=== PATIENT | female | born 1945 | race Hispanic/Latino ===

== ENCOUNTER 2022-09-17 12:59 | Outpatient (RCR) | payer MEDICARE | END 2022-09-29 | LOC: PT 12:59 | PROVIDERS: ATTEND Specialist | DX: M17.0 Bilateral primary osteoarthritis of knee (principal); M62.81 Muscle weakness (generalized); M25.562 Pain in left knee; M25.561 Pain in right knee; M25.661 Stiffness of right knee, not elsewhere classified ==

== ENCOUNTER 2022-10-08 09:54 | Outpatient (RCR) | payer MEDICARE | END 2022-10-27 | LOC: PT 09:54 | PROVIDERS: ATTEND Specialist | DX: M17.0 Bilateral primary osteoarthritis of knee (principal); M62.81 Muscle weakness (generalized); M25.561 Pain in right knee; M25.562 Pain in left knee; M25.661 Stiffness of right knee, not elsewhere classified ==

== ENCOUNTER → 2022-10-26 | Outpatient (CLI) | payer MEDICARE ==
[~2022-10-26] MED LIST: GADOBENATE DIMEGLUMINE 1 ML IV ONE
[2022-10-26 11:43] LABS: CREATININE, SERUM 0.77 mg/dL (0.57-1.11)
== END ==
LOC: MRI 09:14
PROVIDERS: ATTEND Internal Medicine Cardiovascular Disease
DX: R22.42 Localized swelling, mass and lump, left lower limb (principal)
CPT/HCPCS: 36415; 73720; 82565; 84520; A9577

== ENCOUNTER 2024-07-03 11:20 | Observation (INO) | payer MEDICARE ==
[~2024-07-03] VITALS: Ht 157.5 cm; Wt 95.3 kg
[2024-07-03 11:22] VITALS: TEMP 98.1
[2024-07-03] MEDS ORDERED: SODIUM CHLORIDE FLUSH 10 ML SYR IV PRN (11:30)
[2024-07-03 12:53] LABS: BASOPHILS # (AUTO) 0.1 (0.0-0.1); BASOPHILS % 0.6 % (0.0-1.0); EOSINOPHILS # (AUTO) 0.4 (0.0-0.4); EOSINOPHILS % 3.5 % (0.0-6.0); HEMATOCRIT 38.3 % (34.2-44.1); HEMOGLOBIN 11.8 g/dL (12.0-16.0); LYMPHOCYTES # (AUTO) 1.6 (1.0-3.2); LYMPHOCYTES % 15.5 % (18.0-39.1); MEAN CORPUSCULAR HEMOGLOBIN 27.1 pg (28-32); MEAN CORPUSCULAR HGB CONC 30.8 g/dL (31-35); MEAN CORPUSCULAR VOLUME 87.8 fL (81-99); MONOCYTES # (AUTO) 0.7 (0.2-0.8); MONOCYTES % 6.6 % (4.4-11.3); NEUTROPHILS # (AUTO) 7.7 (2.1-6.9); NEUTROPHILS % 73.2 % (38.7-80.0); PLATELET COUNT 243 x10e3/uL (140-360); RED BLOOD COUNT 4.36 x10e6/uL (3.6-5.1); RED CELL DISTRIBUTION WIDTH 14.6 % (11.7-14.4); WHITE BLOOD COUNT 10.51 x10e3/uL (4.8-10.8)
[2024-07-03] MEDS: ASPIRIN 81 MG CHEW TAB PO ONE ×3 (13:12→15:20)
[2024-07-03 13:17] LABS: ALANINE AMINOTRANSFERASE 13 IU/L (0-55); ALBUMIN 3.8 g/dL (3.5-5.0); ALKALINE PHOSPHATASE 119 IU/L (40-150); ANION GAP 13.3 mmol/L (8-16); BILIRUBIN,TOTAL 0.4 mg/dL (0.2-1.2); BLOOD UREA NITROGEN 19 mg/dL (7-26); BUN/CREATININE RATIO 23 (6-25); CALCIUM 9.9 mg/dL (8.4-10.2); CARBON DIOXIDE 23 mmol/L (22-29); CHLORIDE 105 mmol/L (98-107); CREATININE, SERUM 0.81 mg/dL (0.57-1.11); EST GLOMERULAR FILTRATION RATE 75 ML/MIN (>=60); GLUCOSE 125 mg/dL (74-118); POTASSIUM 4.3 mmol/L (3.5-5.1); SODIUM 137 mmol/L (136-145); TOTAL PROTEIN 7.7 g/dL (6.5-8.1)
[2024-07-03 14:09] LABS: TROPONIN I < 0.05 ng/mL (0.0-0.40)
[2024-07-03] MEDS ORDERED: SODIUM CHLORIDE FLUSH 10 ML SYR INJ PRN (15:00)
[2024-07-03] MEDS ORDERED: ONDANSETRON HCL INJ 2MG/ML 2ML 2 MG/ML VIAL IV PRN (15:00)
[2024-07-03 16:30] VITALS: PULSE 63; RESP 20
[2024-07-03 20:00] VITALS: BP 143/55; PULSE 68; RESP 16; TEMP 97.5; O2SAT 99
[2024-07-04] VITALS (7 sets, daily range): BP systolic 130–149; BP diastolic 57–65; PULSE 70–86; RESP 18–23; TEMP 97.5–98.1; O2SAT 97–100
[2024-07-04 05:36] LABS: BASOPHILS # (AUTO) 0.1 (0.0-0.1); BASOPHILS % 0.6 % (0.0-1.0); EOSINOPHILS # (AUTO) 0.5 (0.0-0.4); EOSINOPHILS % 4.8 % (0.0-6.0); HEMATOCRIT 35.7 % (34.2-44.1); HEMOGLOBIN 10.8 g/dL (12.0-16.0); LYMPHOCYTES # (AUTO) 2.2 (1.0-3.2); LYMPHOCYTES % 22.7 % (18.0-39.1); MEAN CORPUSCULAR HEMOGLOBIN 27.1 pg (28-32); MEAN CORPUSCULAR HGB CONC 30.3 g/dL (31-35); MEAN CORPUSCULAR VOLUME 89.7 fL (81-99); MONOCYTES # (AUTO) 0.7 (0.2-0.8); MONOCYTES % 7.2 % (4.4-11.3); NEUTROPHILS # (AUTO) 6.1 (2.1-6.9); NEUTROPHILS % 64.2 % (38.7-80.0); PLATELET COUNT 212 x10e3/uL (140-360); RED BLOOD COUNT 3.98 x10e6/uL (3.6-5.1); RED CELL DISTRIBUTION WIDTH 14.6 % (11.7-14.4); WHITE BLOOD COUNT 9.55 x10e3/uL (4.8-10.8)
[2024-07-04] MEDS ORDERED: METOPROLOL TART50 MG (05:37)
[2024-07-04] MEDS ORDERED: GLIPIZIDE5 MG (05:37)
[2024-07-04] MEDS ORDERED: METFORMIN HCL500 MG (05:37)
[2024-07-04] MEDS ORDERED: ASPIRIN CHEW81 MG PO (05:45)
[2024-07-04 06:14] LABS: ALBUMIN 3.5 g/dL (3.5-5.0); ALBUMIN/GLOBULIN RATIO 1.1 (0.8-2.0); ANION GAP 17.3 mmol/L (8-16); BILIRUBIN,TOTAL 0.3 mg/dL (0.2-1.2); CALCIUM 9.5 mg/dL (8.4-10.2); CREATININE, SERUM 0.79 mg/dL (0.57-1.11); POTASSIUM 4.3 mmol/L (3.5-5.1); TOTAL PROTEIN 6.7 g/dL (6.5-8.1)
[2024-07-04 06:46] LABS: TROPONIN I 0.006 ng/mL (0-0.300)
[2024-07-04 13:55] LABS: TROPONIN I 0.011 ng/mL (0-0.300)
[2024-07-04] MEDS: METOPROLOL TARTRATE 25 MG TAB PO SCH (15:16)
[2024-07-04] MEDS: ASPIRIN 81 MG CHEW TAB PO SCH (15:16)
[2024-07-05] VITALS: BP 139/59; PULSE 66; RESP 18; TEMP 97.5; O2SAT 98
[2024-07-05 04:00] VITALS: BP 151/68; PULSE 71; RESP 16; TEMP 97.7; O2SAT 100
[2024-07-05 08:55] VITALS: BP 151/68; PULSE 71; RESP 16; TEMP 97.7; O2SAT 100
[2024-07-05] MEDS ORDERED: REGADENOSON 0.4 MG/5 ML SYR IV ONE (12:34)
[2024-07-05 16:35] VITALS: BP 162/71; PULSE 97; RESP 18; TEMP 97.4; O2SAT 100
[2024-07-05] MEDS ORDERED: LOSARTAN POTAS100 MG PO (20:55)
[2024-07-05 21:06] VITALS: BP 182/81; PULSE 99; RESP 21; TEMP 98.2; O2SAT 98
== END 2024-07-05 21:50 | disposition home or self-care, planned readmission (81) ==
LOC: ER 11:23 → ERHOLD 14:48 → MED/SURG 18:05
PROVIDERS: ADMIT Internal Medicine; ATTEND Internal Medicine
DX: R07.89 Other chest pain (principal); E11.65 Type 2 diabetes mellitus with hyperglycemia; I10 Essential (primary) hypertension; Z79.84 Long term (current) use of oral hypoglycemic drugs; D64.9 Anemia, unspecified
CPT/HCPCS: 36415 ×2; 71046; 78452; 80053 ×2; 82550; 82948 ×2; 83880; 84484 ×2; 85025 ×2; 93005 ×2; 93017; 93306; 94760; 99284; A9502; G0378 ×3; J2785